=== PATIENT | male | born 1955 | race Caucasian/White ===

== ENCOUNTER 2018-03-09 11:35 | Emergency (ER) | payer OTHER ==
[~2018-03-09] VITALS: Ht 172.7 cm; Wt 104.0 kg
[2018-03-09 11:47] VITALS: Ht 172.7 cm; Wt 104.0 kg
--- NOTE | 2018-03-09 12:23 | EMERGENCY ROOM VISIT NOTE ---
History Report prepared by Harley: Vernon Galvan Under the Supervision of: Dr. Francisco Drake M.D. First contact with patient: 12:04 Chief Complaint: PELVIC PAIN Stated Complaint: INTENSE PELVIC PAIN, NAUSEA, COLD SWEATS History of Present Illness The patient is a 62 year old male who presents to the Emergency Room with complaints of persistent left lower quadrant abdominal pain that began at 0945. He rates his pain as a 1/10 in severity. The patient states that he woke up at at 0945 with "intense" left lower quadrant abdominal pain, and initially his pain was 10 out of 10. He reports that he then went to the bathroom to try to have a bowel movement and urinate. The patient states that when he was on the toilet he started to experience cold diaphoresis. He reports that that he also started to experience nausea. The patient states that he took an Aleve for his pain without any relief of symptoms. He reports he then tried to walk around to see what the pain felt like and noted it felt like muscle cramps. The patient states he took Potassium Gluconate for his pain without any relief. He reports that he is still experiencing left lower quadrant pain and is febrile, which caused him to come to the ED. The patient denies a history of kidney problems, kidney stones, hematuria, pain with urination, blood in stools, black stools, fever, chest pain, shortness of breath, and vomiting. He reports a history of diverticulosis and diabetes. The patient states his father from an [place] at the age of 55. Source of History: patient Onset: 0945 Position: abdomen (LLQ) Symptom Intensity: 1/10 Timing: other (persistent) Modifying Factors (Relieving): other (Aleve, Potassium Gluconate) Associated Symptoms: + diaphoresis, + nausea, No fevers, No chest pain, No SOB, No vomiting, No melena, No hematochezia, No urinary symptoms Review of Systems See HPI for pertinent positives and negatives. A total of ten systems were reviewed and were otherwise negative. Past Medical & Surgical Medical Problems: (1) Acid reflux (2) Colon polyp (3) Diabetes (4) Fungal infection (5) HTN (hypertension) Family History Diabetes mellitus Haja thyroiditis Heart disease Hypertension Kidney stones Social History Smoking Status: Never Smoker Alcohol Use: occasionally Marital Status: Housing Status: lives with significant other Occupation Status: employed Current/Historical Medications Scheduled Amlodipine (Norvasc), Unknown Dose PO DAILY Losartan Potassium (Cozaar), Unknown Dose PO DAILY Metformin Hcl (Glucophage), Unknown Dose PO DAILY Allergies Coded Allergies: MALATHI Inhibitors (Verified Allergy, Severe, LISINOPRIL, 03/09/18) PRINIVIL-ANGIOEDEMA Hydrochlorothiazide (Verified Allergy, Severe, 03/09/18) RASH,HIVES,ASTHMA Sulfa Drugs (Verified Allergy, Unknown, 03/09/18) ABLE TO TAKE SULFA A CHILD, BUT ALLERGIC TO HCTZ Physical Exam Vital Signs Date Time Temp Pulse Resp B/P (MAP) Pulse Ox O2 Delivery O2 Flow Rate FiO2 03/09/18 14:34 36.4 90 18 183/102 97 03/09/18 14:15 183/102 03/09/18 14:14 90 18 168/112 97 Room Air 03/09/18 11:47 36.4 94 16 166/97 97 Room Air Physical Exam Physical Exam GENERAL: He is oriented to person, place, and time. He appears well-developed and well-nourished. He does not appear distressed. ____ HENT: Exam performed. Head: Normocephalic and atraumatic. Right Ear: External ear normal. No mastoid tenderness. Left Ear: External ear normal. No mastoid tenderness. Mouth/Throat: The oropharynx is clear and moist. No trismus in the jaw. No dental abscesses or uvula swelling. No oropharyngeal exudate or tonsillar abscesses. ____ EYES: Conjunctivae and EOM are normal. Pupils are equal, round, and reactive to light. Right eye exhibits no discharge. Left eye exhibits no discharge. No scleral icterus. ____ NECK: Normal range of motion. Neck supple. No JVD present. No spinous process tenderness present. No carotid bruit present. No rigidity. No tracheal deviation and normal range of motion present. No Brudzinski's sign and no Kernig 's sign noted. ____ CV: Normal rate, regular rhythm, normal heart sounds and intact distal pulses. There is no peripheral edema. Palpable radial pulses bue. ____ PULM/CHEST: Effort normal and breath sounds normal. No respiratory distress. No stridor. He has no wheezes. He has no rales. Chest Wall: He exhibits no tenderness. ____ ABD: The abdomen is soft. Bowel sounds are normal. He has no distension. No mass is present. Pain on palpation of left lower quadrant. There is no rebound, no guarding, no Campos's sign and no tenderness at McBurney's point. Rovsig negative MUSC/SKEL: Normal range of motion. There is no peripheral edema, tenderness or deformity. LYMPH: No cervical adenopathy. ____ NEURO: He is alert and oriented to person, place, and time. He has normal strength. No cranial nerve deficit or sensory deficit. Coordination and gait normal. GCS eye subscore is 4. GCS verbal subscore is 5. GCS motor subscore is 6. Cerebellar tests wnl. ____ SKIN: Skin is warm and dry. He is not diaphoretic. ____ PSYCH: He has a normal mood and affect. His behavior is normal. Judgment and thought content normal. ____ Medical Decision & Procedures ER Provider Diagnostic Interpretation: Radiology results as stated below per my review and radiologist interpretation: ABD/PELVIS IV CONTRAST ONLY CLINICAL HISTORY: 62 years-old Male presenting with llq pain r/o diverticulitis, nausea. TECHNIQUE: Multidetector CT of the abdomen and pelvis was performed after the administration of intravenous contrast. IV contrast: 120 mL of Optiray 320. A dose lowering technique was used consistent with the principles of ALARA (as low as reasonably achievable). COMPARISON: 07/31/2014. CT DOSE (mGy.cm): The estimated cumulative dose is 1150.86 mGycm. FINDINGS: [employer] Supervisor topogram: Unremarkable. Lung bases: 4 mm triangular peripheral nodule in the right middle lobe (series 3 image 10). Bases otherwise clear. Normal heart size. Coronary artery calcification. No pericardial or pleural effusion. Liver: Normal morphology. Well-defined hypodensity in the left hepatic lobe likely hepatic cyst or hamartoma. Patent hepatic vasculature. Biliary: No intrahepatic or extrahepatic biliary ductal dilatation. Normal gallbladder. Pancreas: Mild parenchymal atrophy. Spleen: Normal. Adrenal glands: Normal. Kidneys and ureters: Subcentimeter hypodensities in the left kidney too small to characterize but likely cysts. No nephrolithiasis. No hydronephrosis. Mild urothelial thickening bilaterally. No periureteral fat stranding. Bladder: Circumferential bladder wall thickening allowing for underdistention. Pelvic organs: Prostate enlargement likely secondary to benign prostatic hyperplasia. Hyperenhancement of the bulbar urethra. Bowel: Moderate stool burden in the cecum. The appendix is normal. No bowel obstruction. Few diverticula noted in the sigmoid colon. Peritoneal cavity: No free fluid or intraperitoneal gas. Lymph nodes: No enlarged lymph nodes in the abdomen or pelvis. Vasculature: Atherosclerosis of the normal caliber abdominal aorta. IVC patent. Abdominal wall: Diastasis of the rectus abdominis. Fat-containing inguinal hernias. Musculoskeletal: Degenerative changes of the spine. IMPRESSION: 1. Few diverticula in the sigmoid colon without evidence of diverticulitis. 2. Subtle evidence of urothelial thickening could relate to chronic reflux or inflammation in the setting of chronic bladder outlet obstruction due to prostatomegaly. Correlate with urinalysis to exclude infection. Electronically signed by: Gordo Garces M.D. 03/09/2018 2:02 PM Dictated Date/Time: 03/09/2018 1:55 PM Laboratory Results 03/09/18 12:30 Red Blood Count 4.91, Mean Corpuscular Volume 83.7, Mean Corpuscular Hemoglobin 29.3, Mean Corpuscular Hemoglobin Concent 35.0, Mean Platelet Volume 8.9, Neutrophils (%) (Auto) 79.7, Lymphocytes (%) (Auto) 11.7, Monocytes (%) (Auto) 7.1, Eosinophils (%) (Auto) 0.9, Basophils (%) (Auto) 0.3, Neutrophils # (Auto) 5.15, Lymphocytes # (Auto) 0.76, Monocytes # (Auto) 0.46, Eosinophils # (Auto) 0.06, Basophils # (Auto) 0.02 03/09/18 12:30 Test 03/09/18 12:30 03/09/18 13:19 White Blood Count 6.47 K/uL (4.8-10.8) Red Blood Count 4.91 M/uL (4.7-6.1) Hemoglobin 14.4 g/dL (14.0-18.0) Hematocrit 41.1 % (42-52) Mean Corpuscular Volume 83.7 fL (80-100) Mean Corpuscular Hemoglobin 29.3 pg (25-34) Mean Corpuscular Hemoglobin Concent 35.0 g/dl (32-36) Platelet Count 210 K/uL (130-400) Mean Platelet Volume 8.9 fL (7.4-10.4) Neutrophils (%) (Auto) 79.7 % Lymphocytes (%) (Auto) 11.7 % Monocytes (%) (Auto) 7.1 % Eosinophils (%) (Auto) 0.9 % Basophils (%) (Auto) 0.3 % Neutrophils # (Auto) 5.15 K/uL (1.4-6.5) Lymphocytes # (Auto) 0.76 K/uL (1.2-3.4) Monocytes # (Auto) 0.46 K/uL (0.11-0.59) Eosinophils # (Auto) 0.06 K/uL (0-0.5) Basophils # (Auto) 0.02 K/uL (0-0.2) RDW Standard Deviation 41.0 fL (36.4-46.3) RDW Coefficient of Variation 13.5 % (11.5-14.5) Immature Granulocyte % (Auto) 0.3 % Immature Granulocyte # (Auto) 0.02 K/uL (0.00-0.02) Anion Gap 8.0 mmol/L (3-11) Est Creatinine Clear Calc Drug Dose 73.6 ml/min Estimated GFR () 74.1 Estimated GFR (Non- 64.0 BUN/Creatinine Ratio 11.2 (10-20) Calcium Level 9.1 mg/dl (8.5-10.1) Total Bilirubin 0.3 mg/dl (0.2-1) Direct Bilirubin 0.1 mg/dl (0-0.2) Aspartate Amino Transf (AST/SGOT) 18 U/L (15-37) Alanine Aminotransferase (ALT/SGPT) 31 U/L (12-78) Alkaline Phosphatase 106 U/L (45-117) Total Protein 7.4 gm/dl (6.4-8.2) Albumin 4.2 gm/dl (3.4-5.0) Lipase 178 U/L (73-393) Urine Color YELLOW Urine Appearance CLEAR (CLEAR) Urine pH 5.5 (4.5-7.5) Urine Specific [place] 1.015 (1.000-1.030) Urine Protein NEG (NEG) Urine Glucose (UA) NEG (NEG) Urine Ketones NEG (NEG) Urine Occult Blood 2+ (NEG) Urine Nitrite NEG (NEG) Urine Bilirubin NEG (NEG) Urine Urobilinogen NEG (NEG) Urine Leukocyte Esterase NEG (NEG) Urine WBC (Auto) 1-5 /hpf (0-5) Urine RBC (Auto) 10-30 /hpf (0-4) Urine Hyaline Casts (Auto) 1-5 /lpf (0-5) Urine Epithelial Cells (Auto) 0-5 /lpf (0-5) Urine Bacteria (Auto) NEG (NEG) Laboratory results reviewed by me ECG Per My Interpretation Indication: nausea Rate (beats per minute): 91 Rhythm: normal sinus Findings: other (OR QRS QTC wnl. No ST elevation or depression) ED Course 1216: The patient was evaluated in room B08. A complete history and physical exam was performed. The patient denies any pain medication at this time. 1409: I reevaluated the patient and his blood pressure is elevated. He notes he did not take his blood pressure medication this morning. He reports his pain is better. The patients vital signs are wnl. The patient is thought to have passed a small stone given the blood in the urine. The patient does not appear to have large kidney stones on CT scan. No signs of hydroureter or infection. The patient is discharged in stable condition. He was suggested to increased fluid intake. DISCHARGE - Plan of care discussed with patient and questions answered. The patient was given both verbal and printed discharge instructions. The patient verbalized understanding and ability to comply. The patient is to seek outpatient follow up as noted in the discharge instructions. The patient verbalized understanding and ability to comply. The patient is discharged in stable condition. The patient was instructed to return for worsening symptoms. Medical Decision I reevaluated the patient and his blood pressure is elevated. He notes he did not take his blood pressure medication this morning. He reports his pain is better. The patients vital signs are wnl. The patient is thought to have passed a small stone given the blood in the urine. The patient does not appear to have large kidney stones on CT scan. No signs of hydroureter or infection. The patient is discharged in stable condition. He was suggested to increased fluid intake. DISCHARGE - Plan of care discussed with patient and questions answered. The patient was given both verbal and printed discharge instructions. The patient verbalized understanding and ability to comply. The patient is to seek outpatient follow up as noted in the discharge instructions. The patient verbalized understanding and ability to comply. The patient is discharged in stable condition. The patient was instructed to return for worsening symptoms. Medication Reconcilliation Current Medication List: was personally reviewed by me Blood Pressure Screening Patient's blood pressure: Elevated blood pressure Blood pressure disposition: Referred to PCP Impression Primary Impression: Abdominal pain Scribe Attestation The scribe's documentation has been prepared under my direction and personally reviewed by me in its entirety. I confirm that the note above accurately reflects all work, treatment, procedures, and medical decision making performed by me. The chart was completed utilizing [employer] Speech voice recognition software. Grammatical errors, random word insertions, pronoun errors, and incomplete sentences are an occasional consequence of this system due to software limitations, ambient noise, and hardware issues. Any formal questions or concerns about the content, text, or information contained within the body of this dictation should be directly addressed to the physician for clarification. Departure Information Dispostion Home / Self-Care Referrals Bekah Schmidt (PCP) Forms HOME CARE DOCUMENTATION FORM, IMPORTANT VISIT INFORMATION, WORK / SCHOOL INSTRUCTIONS Patient Instructions Abdominal Pain - [facility], [facility] Additional Instructions Drink plenty of fluids at home including water and cranberry juice. Take her home blood pressure medication at home. Problem Qualifiers Primary Impression: Abdominal pain Abdominal location: left lower quadrant Qualified Codes: R10.32 - Left lower quadrant pain
[2018-03-09] MEDS ORDERED: LOSA1TAB PO (12:41)
[2018-03-09] MEDS ORDERED: GLC/500 PO (12:41)
[2018-03-09] MEDS ORDERED: AMLO2.5T PO (12:41)
[2018-03-09 12:44] LABS: BASO % 0.3 %; BASO ABS # 0.02 K/uL (0-0.2); EOS % 0.9 %; EOS ABS # 0.06 K/uL (0-0.5); HEMATOCRIT 41.1 % (42-52); HEMOGLOBIN 14.4 g/dL (14.0-18.0); IG# 0.02 K/uL (0.00-0.02); LYMPH % 11.7 %; LYMPH ABS # 0.76 K/uL (1.2-3.4); MEAN CELL VOLUME 83.7 fL (80-100); MEAN CORPUSCULAR HEMOGLOBIN 29.3 pg (25-34); MEAN PLATELET VOLUME 8.9 fL (7.4-10.4); MONO % 7.1 %; MONO ABS # 0.46 K/uL (0.11-0.59); NEUT % 79.7 %; NEUT ABS # 5.15 K/uL (1.4-6.5); PLATELET COUNT 210 K/uL (130-400); RED CELL DISTRIBUTION WIDTH CV 13.5 % (11.5-14.5); WHITE BLOOD COUNT 6.47 K/uL (4.8-10.8)
[2018-03-09 13:07] LABS: ALBUMIN 4.2 gm/dl (3.4-5.0); CALCIUM 9.1 mg/dl (8.5-10.1); CREATININE 1.2 mg/dl (0.60-1.40); POTASSIUM 4.1 mmol/L (3.5-5.1); TOTAL PROTEIN 7.4 gm/dl (6.4-8.2)
--- NOTE | 2018-03-09 14:03 | DIAGNOSTIC IMAGING REPORT ---
ABD/PELVIS IV CONTRAST ONLY CLINICAL HISTORY: 62 years-old Male presenting with llq pain r/o diverticulitis, nausea. TECHNIQUE: Multidetector CT of the abdomen and pelvis was performed after the administration of intravenous contrast. IV contrast: 120 mL of Optiray 320. A dose lowering technique was used consistent with the principles of ALARA (as low as reasonably achievable). COMPARISON: 07/31/2014. CT DOSE (mGy.cm): The estimated cumulative dose is 1150.86 mGycm. FINDINGS: [employer] topogram: Unremarkable. Lung bases: 4 mm triangular peripheral nodule in the right middle lobe (series 3 image 10). Bases otherwise clear. Normal heart size. Coronary artery calcification. No pericardial or pleural effusion. Liver: Normal morphology. Well-defined hypodensity in the left hepatic lobe likely hepatic cyst or hamartoma. Patent hepatic vasculature. Biliary: No intrahepatic or extrahepatic biliary ductal dilatation. Normal gallbladder. Pancreas: Mild parenchymal atrophy. Spleen: Normal. Adrenal glands: Normal. Kidneys and ureters: Subcentimeter hypodensities in the left kidney too small to characterize but likely cysts. No nephrolithiasis. No hydronephrosis. Mild urothelial thickening bilaterally. No periureteral fat stranding. Bladder: Circumferential bladder wall thickening allowing for underdistention. Pelvic organs: Prostate enlargement likely secondary to benign prostatic hyperplasia. Hyperenhancement of the bulbar urethra. Bowel: Moderate stool burden in the cecum. The appendix is normal. No bowel obstruction. Few diverticula noted in the sigmoid colon. Peritoneal cavity: No free fluid or intraperitoneal gas. Lymph nodes: No enlarged lymph nodes in the abdomen or pelvis. Vasculature: Atherosclerosis of the normal caliber abdominal aorta. IVC patent. Abdominal wall: Diastasis of the rectus abdominis. Fat-containing inguinal hernias. Musculoskeletal: Degenerative changes of the spine. IMPRESSION: 1. Few diverticula in the sigmoid colon without evidence of diverticulitis. 2. Subtle evidence of urothelial thickening could relate to chronic reflux or inflammation in the setting of chronic bladder outlet obstruction due to prostatomegaly. Correlate with urinalysis to exclude infection. Electronically signed by: Gordo Garces M.D. 03/09/2018 2:02 PM Dictated Date/Time: 03/09/2018 1:55 PM
[2018-03-09 14:34] VITALS: BP 183/102; PULSE 90; TEMP 36.4; O2SAT 97
== END 2018-03-09 14:30 | disposition home or self-care (01) ==
LOC: C.EDB 11:37
DX: R10.32 Left lower quadrant pain (principal); E11.9 Type 2 diabetes mellitus without complications; K21.9 Gastro-esophageal reflux disease without esophagitis; Z86.010 Personal history of colon polyps; I10 Essential (primary) hypertension; Z83.3 Family history of diabetes mellitus; Z83.49 Family history of other endocrine, nutritional and metabolic diseases; Z82.49 Family history of ischemic heart disease and other diseases of the circulatory system; Z84.1 Family history of disorders of kidney and ureter; Z79.84 Long term (current) use of oral hypoglycemic drugs; Z79.899 Other long term (current) drug therapy; Z88.2 Allergy status to sulfonamides; Z88.8 Allergy status to other drugs, medicaments and biological substances

== ENCOUNTER → 2018-03-10 | Outpatient (CLI) | payer OTHER ==
[~2018-03-10] MED LIST: AMLO2.5T PO; GLC/500 PO; LOSA1TAB PO
[2018-03-10 11:06] LABS: CREATININE 1.07 mg/dl (0.60-1.40)
== END | disposition home or self-care (01) ==
LOC: C.LAB 10:20
PROVIDERS: ATTEND Nurse Practitioner Family
DX: Z51.81 Encounter for therapeutic drug level monitoring (principal); N20.0 Calculus of kidney